=== PATIENT | male | born 1995 | race Hispanic/Latino ===

== ENCOUNTER 2019-04-08 01:53 | Emergency (ER) | payer SELFPAY | END 2019-04-08 03:04 | disposition home or self-care (01) | LOC: EDH 01:53 | DX: T16.1XXA Foreign body in right ear, initial encounter (principal); X58.XXXA Exposure to other specified factors, initial encounter; Y93.89 Activity, other specified; Y92.89 Other specified places as the place of occurrence of the external cause; Y99.8 Other external cause status | CPT/HCPCS: 99281 ==

== ENCOUNTER 2021-11-22 12:20 | Emergency (ER) | payer OTHER ==
[~2021-11-22] VITALS: Ht 175.3 cm; Wt 49.9 kg
[2021-11-22] MEDS ORDERED: 0.9%NACL 1000ML 1,000 ML IV ONE ×2 (13:00)
[2021-11-22 14:02] LABS: BASOPHILS % (AUTO) 0.2 % (0.0-5.0); HEMATOCRIT 47.7 % (42-54); LYMPHOCYTES % (AUTO) 9.4 % (21.0-51.0); MEAN CORPUSCULAR HEMOGLOBIN 27.7 pg (27.0-33.0); MEAN CORPUSCULAR HGB CONC 34.4 g/dL (32.0-36.0); MEAN CORPUSCULAR VOLUME 80.4 fL (79-99); MONOCYTES % (AUTO) 4.7 % (3.0-13.0); NEUTROPHILS % (AUTO) 85.3 % (40.0-77.0); PLATELET COUNT (AUTO) 188 K/uL (130-400); RED BLOOD CELL COUNT(AUTO) 5.93 MIL/uL (4.50-6.20); RED CELL DISTRIBUTION WIDTH 13.2 % (11.0-15.5)
[2021-11-22 14:09] LABS: APPEARANCE,URINE Cloudy (CLEAR); BILIRUBIN,URINE Small (NEGATIVE); COLOR,URINE Dark Yellow (YELLOW); GLUCOSE, URINE (UA) Negative (NEGATIVE); KETONES,URINE 40 mg/dL (NEGATIVE); LEUKOCYTE ESTERASE ,URINE Negative (NEGATIVE); NITRATE,URINE Negative (NEGATIVE); OCCULT BLOOD,URINE Negative (NEGATIVE); PROTEIN,URINE POS 1+ mg/dL (NEGATIVE)
[2021-11-22 14:14] LABS: CREATININE 1.1 mg/dL (0.5-1.5); POTASSIUM 3.9 mmol/L (3.5-5.1)
[2021-11-22 14:17] LABS: INR 1.02 (0.85-1.15); PROTHROMBIN TIME 11.1 SEC (9.6-11.6)
[2021-11-22 14:18] LABS: ALBUMIN 3.8 g/dL (3.5-5.0); BILIRUBIN,TOTAL 0.8 mg/dL (0.2-1.0); PARTIAL THROMBOPLASTIN TIME 31.1 SEC (26.3-35.5); TOTAL PROTEIN, SERUM 8.1 g/dL (6.0-8.3)
[2021-11-22] MEDS ORDERED: FAMOTIDINE 20MG VIAL IV ONE ×2 (14:30)
[2021-11-22] MEDS ORDERED: ONDANSETRON 4MG INJ IVP ONE (14:30)
[2021-11-22] MEDS ORDERED: MORPHINE 2 MG SYG IVP ONE (14:30)
[2021-11-22 14:37] LABS: BACTERIA,URINE Few /HPF (None Seen); MUCUS,URINE Moderate LPF (None Seen); RBC,URINE 0-1 /HPF (0-1); SQUAMOUS EPITHELIAL CELL,UR Rare /HPF (0-2)
[2021-11-22] MEDS ORDERED: IOHEXOL 350 MG/ML 100ML INFUS..BTL IV ONE (16:58)
[2021-11-22] MEDS ORDERED: ONDA4TAB10 PO (18:23)
[2021-11-22] MEDS ORDERED: DICY20TA2 PO (18:23)
[2021-11-22 18:28] VITALS: BP 105/71
== END 2021-11-22 18:33 | disposition home or self-care (01) ==
LOC: EDH 12:20
DX: K52.9 Noninfective gastroenteritis and colitis, unspecified (principal); Z20.822 Contact with and (suspected) exposure to COVID-19
CPT/HCPCS: 36415; 74177; 80053; 81001; 82270; 83690; 85025; 85610; 85730; 87635; 96361; 96374; 96375; 99285; C9803; J2405; J3490; J7030; Q9967